=== PATIENT | male | born 1960 | race Caucasian/White ===

== ENCOUNTER 2023-12-28 11:01 | Emergency (ER) | payer MEDICARE, SELFPAY ==
[2023-12-28] VITALS (8 sets, daily range): BP systolic 118–196; BP diastolic 74–104; PULSE 86–107; RESP 17–21; TEMP 37.1; O2SAT 93–98; BMI 26.4
--- NOTE | 2023-12-28 11:02 | CTR_ITS ---
PROCEDURE INFORMATION: Exam: CT Head Without Contrast Exam date and time: 12/28/2023 10:58 AM Age: 63 years old Clinical indication: Stroke-like symptoms; Altered mental status/memory loss; Additional info: Symptoms of acute stroke TECHNIQUE: Imaging protocol: Computed tomography of the head without contrast. Radiation optimization: All CT scans at this facility use at least one of these dose optimization techniques: automated exposure control; mA and/or kV adjustment per patient size (includes targeted exams where dose is matched to clinical indication); or iterative reconstruction. Other technique: STROKE PROTOCOL was implemented. COMPARISON: No relevant prior studies available. RADIATION DOSE METRICS: Total DLP (mGy-cm): 1073.54 FINDINGS: Brain: Intracranial hemorrhage is identified involving the right thalamus measuring 24 x 31 mm with blood extending into the right lateral ventricle. There is mild buckling of septum pellucidum 2 mm to the left. There is blood within the 3rd ventricle but not the 4th ventricle. There is minimal blood in the left lateral ventricle. Cerebral ventricles: See Brain finding. Paranasal sinuses: Visualized sinuses are unremarkable. No fluid levels. Mastoid air cells: Visualized mastoid air cells are well aerated. Bones: Unremarkable. No acute fracture. Soft tissues: Unremarkable. CT/CT head thrombolytic 12420 IMPRESSION: Right thalamic bleed with blood extending into ventricular system with trace left midline shift. Most concerning for a hypertensive infarct. ASSESSMENT: ASPECTS ([place] Stroke Program Early CT Score) does not apply.
--- NOTE | 2023-12-28 11:12 | PC.NURSE ---
XUAN called to discuss the CT Head for this patient with Dr. Rodrigues. Dr. Rodrigues verbalized he was too busy with the patient to take the phone call but verbalized he had seen the CT and had no further questions for the radiologist. I verbalized this information to xuan on the phone.
[2023-12-28 11:19] LABS: Basophils % 0.6 %; Eosinophils % 0.5 %; Hematocrit 45.5 % (37-53); Lymphocytes # 0.7 10^3/uL (0.8-4.8); Lymphocytes % 11.4 %; Mean Corpuscular HGB Conc 33.4 g/dL (30-55); Mean Corpuscular Hemoglobin 32.5 pg (27-33); Mean Corpuscular Volume 97.4 fl (82-101); Mean Platelet Volume 9.9 fL (7.4-10.4); Monocytes # 0.8 10^3/uL (0.2-0.9); Monocytes % 12.2 %; Neutrophils # 4.69 10^3/uL (1.8-7.7); Neutrophils % 75.1 %; Nucleated Red Blood Cells % 0 %; Platelet Count 142 10^3/cmm (157-399); Red Blood Count 4.67 10^6/uL (3.85-5.65); Red Cell Distribution Width 14.9 % (12.1-15.1); White Blood Count 6.24 10^3/uL (3.29-11.43)
[2023-12-28] MEDS: nicardipine 20 MG/200 ML PREMIX 50 MG IV (11:22)
--- NOTE | 2023-12-28 11:27 | PC.NURSE ---
Pt went straight to CT at 1100. Pt is smoker. Denies blood thinners.
[2023-12-28 11:28] LABS: INR 1.17 (0.8-1.2)
--- NOTE | 2023-12-28 11:28 | ED_ITS ---
HPI - Neuro Symptoms/Deficit 2 General: Chief Complaint: Neuro Symptoms/Deficit Stated Complaint: stroke like symptoms Time Seen by Provider: 12/28/23 11:02 Source: patient and EMS Mode of arrival: EMS History of Present Illness: 63-year-old male who states that he is l lidia on the couch this morning at 7:00 he states he had fell off the couch he states he did not hit his head but he noticed after he fell that he was having left-sided weakness states he was unable to get up was unable to stand on his left leg or use his left arm states he had some slurred speech as well Associated symptoms: Deny chest pain, headache(s), nausea or vomiting Related Data Allergies Allergy/AdvReac Type Severity Reaction Status Date / Time No Known Allergies Allergy Verified 12/28/23 11:26 Review of Systems 2 Const: Denies: fever(s), chills, body aches or change in appetite Eyes: Denies: blurry vision or eye discomfort ENMT: Denies: throat pain or dental pain Card: Denies: chest pain Resp: Denies: dyspnea GI: Denies: abdominal pain, nausea, vomiting or diarrhea Musc: Denies: neck pain or back pain Skin/Breast: Denies: rash Neuro: Reports: weakness in extremities, difficulty walking and Slurred speech present; Denies: headache(s) NIH stroke score 2 NIHSS: Level Of Consciousness - 1a: 0 Level Of Consciousness Questions - 1b: Both Correct Level Of Consciousness Commands - 1c: Both Correct Best Gaze - 2: Normal Visual Nicolas - 3: No Visual Loss Facial Palsy - 4: Minor Paralysis Motor Arm Right - 5: No Drift Motor Arm Left - 5: Drift Motor Leg Right - 6: No Drift Motor Leg Left - 6: Drift Limb Ataxia - 7: Absent Sensory - 8: Normal Best Language - 9: No Aphasia Dysarthia - 10: M ild/Moderate Dysarthia Extinction And Inattention - 11: 0 Score: Total Score: 4 Physical Exam 2 Const: COMMON NORMALS: patient oriented x3 GENERAL APPEARANCE: ill appearing HENMT: COMMON NORMALS: normocephalic and atraumatic HEAD & SCALP: n ormocephalic and atraumatic Eye: COMMON NORMALS: Equal, round and reactive pupils present and EOMs intact bilaterally PUPIL: Yes Equal, round and reactive pupils present Neck/C-Spine: COMMON NORMALS: full ROM and supple Chest: COMMONS NORMALS: normal inspection of the chest Resp: COMMON NORMALS: normal respiratory effort, No retractions, No use of accessory muscles and clear to auscultation bilaterally AUSCULTATION: clear to auscultation bilaterally Cardio: COMMON NORMALS: regular rhythm and No murmurs present (Cardio) R ATE: tachycardic RHYTHM: regular rhythm GI: COMMON NORMALS: Normal to inspection, nondistended, normoactive bowel sounds present, Soft to palpation, non-tender and no masses PALPATION: Yes Soft to palpation Extremity: COMMON NORMALS: normal to inspection Neuro: COMMON NORMALS: patient oriented x3 OTHER: Slurred speech along with left-sided weakness Psych: COMMON NORMALS: mental status grossly normal, Normal thought process present and cooperative THOUGHT PROCESS: Normal thought process present Skin: COMMON NORMALS: no rashes or lesions noted and no wounds GENERAL SKIN EXAM: no rashes or lesions noted Course 2 Vital Signs: Vital signs: Vital Signs Temperature 98.8 F 12/28/23 11:17 Pulse Rate 102 H 12/28/23 11:17 Respiratory Rate 18 12/28/23 11:17 Blood Pressure 196/104 12/28/23 11:17 Pulse Oximetry 96 12/28/23 11:17 Oxygen Delivery Me thod Room Air 12/28/23 11:17 MDM - Neuro Symptoms/Deficit Medical Decision Making Patient presents here with intraparenchymal hemorrhage likely due to hypertension he has no signs of head trauma here do have him on a Cardene drip I spoke to [facility] neuro will transfer there for higher level of care Medical Records I reviewed the patient's medical records. Lab Data I reviewed the patient's lab results. 12/28/23 11:10 12/28/23 11:[address] 12/28/23 11:02 IMPRESSION: Right thalamic bleed with blood extending into ventricular system with trace left midline shift. Most concerning for a hypertensive infarct. ASSESSMENT: ASPECTS ([place] Stroke Program Early CT Score) does not apply. ADDENDUM: 12/28/23 ELLA CRUZ received the report at 12/28/2023 11:12 AM DEMAND GENERATION MANAGER and had no questions per the radiology technical support agent. Laboratory Results WBC 6.24 10^3/uL (3.29-11.43) 12/28/23 11:10 RBC 4.67 10^6/uL (3.85-5.65) 12/28/23 11:10 Hgb 15.20 g/dL (11.27-16.99) 12/28/23 11:10 Hct 45.5 % (37-53) 12/28/23 11:10 MCV 97.4 fl (82-101) 12/28/23 11:10 MCH 32.5 pg (27-33) 12/28/23 11:10 MCHC 33.4 g/dL (30-55) 12/28/23 11:10 RDW 14.9 % (12.1-15.1) 12/28/23 11:10 Plt Count 142 10^3/cmm (157-399) L 12/28/23 11:10 MPV 9.9 fL (7.4-10.4) 12/28/23 11:10 Neut % (Auto) 75.1 % 12/28/23 11:10 Lymph % (Auto) 11.4 % 12/28/23 11:10 [place] % (Auto) 12.2 % 12/28/23 11:10 Eos % (Auto) 0.5 % 12/28/23 11:10 Baso % (Auto) 0.6 % 12/28/23 11:10 Neut # (Auto) 4.69 10^3/uL (1.8-7.7) 12/28/23 11:10 Lymph # (Auto) 0.7 10^3/uL (0.8-4.8) L 12/28/23 11:10 [place] # (Auto) 0.8 10^3/uL (0.2-0.9) 12/28/23 11:10 Eos # (Auto) 0.0 10^3/uL (0.0-0.8) 12/28/23 11:10 Baso # (Auto) 0.0 10^3/uL (0.0-0.1) 12/28/23 11:10 Nucleated RBC % (auto) 0 % 12/28/23 11:10 Nucleated RBCs # 0.0 /100WBC 12/28/23 11:10 PT 15.30 SECONDS (12.1-14.9) H 12/28/23 11:10 INR 1.17 (0.8-1.2) 12/28/23 11:10 APTT 40.0 SECONDS (23.9-36.7) H 12/28/23 11:10 Sodium 136 mmol/L (136-145) 12/28/23 11:10 Potassium 4.2 mmol/L (3.5-5.1) 12/28/23 11:10 Chloride 102 mmol/L (98-107) 12/28/23 11:10 Carbon Dioxide 23 mmol/L (22-29) 12/28/23 11:10 Anion Gap 15.2 (5-19) 12/28/23 11:10 BUN 7 mg/dL (8-23) L 12/28/23 11:10 Creatinine 0.5 mg/dL (0.7-1.2) L 12/28/23 11:10 GFR Calculation 169.0 mL/min (90-130) H 12/28/23 11:10 Glucose 136 mg/dL (65-115) H 12/28/23 11:10 Calculated Osmolality 282 mOsm/kg (285-295) L 12/28/23 11:10 Calcium 9.3 mg/dL (8.5-10.5) 12/28/23 11:10 Total Bilirubin 1.7 mg/dL (0.15-1.2) H 12/28/23 11:10 AST 72 U/L (0-40) H 12/28/23 11:10 ALT 27 U/L (0-41) 12/28/23 11:10 Alkaline Phosphatase 123 U/L (40-130) 12/28/23 11:10 Total Protein 8.5 g/dL (6.6-8.7) 12/28/23 11:10 Albumin 4.0 g/dL (3.5-5.2) 12/28/23 11:10 Globulin 4.5 g/dL (1.3-4.6) 12/28/23 11:10 All radiology interpretation(s) finalized by discharge Critical Care Time 2 Critical Care Time: Critical Care Time: Yes Total Critical Care Time: 50 Attestation: The high probability of a clinically significant, sudden or life threatening deterioration of the patient's neuro system(s) required my full and direct attention, intervention and personal management. The critical care time is as shown. This time is in addition to time spent performing any reported procedures but includes the following: [x] Data and vital sign review and interpretation [x] Patient assessment, examination and intervention [x] Documentation [x] Medication orders and management Discharge Plan Discharge Patient Disposition: Xfer Short-Term Hosp Clinical Impression: Acute intracerebral hemorrhage Condition: Stable Referrals: Tito Teran MD [Primary Care Provider] - Coding Level of Care Code ED Dairy Husbandman for Denisa Solis
[2023-12-28] MEDS: labetalol 5 mg/mL SDV 20mL 10 MG IVP (11:31)
[2023-12-28 11:33] LABS: Alanine Aminotransferase 27 U/L (0-41); Alkaline Phosphatase 123 U/L (40-130); Anion Gap 15.2 (5-19); Aspartate Amino Transferase 72 U/L (0-40); Blood Urea Nitrogen 7 mg/dL (8-23); Calcium 9.3 mg/dL (8.5-10.5); Carbon Dioxide 23 mmol/L (22-29); Chloride 102 mmol/L (98-107); Creatinine Clr Calc Pharmacy 174.7945; Globulin 4.5 g/dL (1.3-4.6); Glucose 136 mg/dL (65-115); Osmolality Calculated 282 mOsm/kg (285-295); Potassium 4.2 mmol/L (3.5-5.1); Sodium 136 mmol/L (136-145); Total Bilirubin 1.7 mg/dL (0.15-1.2); Total Protein 8.5 g/dL (6.6-8.7)
--- NOTE | 2023-12-28 11:55 | ECG_ITS ---
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 Measurements Intervals [place] Rate: 86 P: 65 DC: 149 QRS: 40 QRSD: 92 T: 46 QT: 419 QTc: 504 Interpretive Statements SINUS RHYTHM PROLONGED QT INTERVAL No previous ECG available for comparison Electronically Signed On 12-29-2023 18:47:52 CDT by Sunday Chan M.D. [email or web address]
[2023-12-28 12:05] LABS: Glucose Point of Care 128 mg/dL (70-110)
[2023-12-28 12:35] LABS: Bilirubin Urine Negative (Negative); Blood Urine Negative (Negative); Glucose Urine UA Negative (Normal); Ketones Urine Negative (Negative); Leukocyte Esterase Urine Negative (Negative); Nitrate Urine Negative (Negative); Protein Urine 1+ (Negative); Specific Gravity, Urine 1.011 (1.005-1.030); Urine Appearance Clear (CLEAR); Urine Color Yellow (Yellow)
[2023-12-28 12:38] LABS: Add Urine Microscopic? YES; Bacteria Urine None Seen /hpf; Hyaline Casts Urine 0-4 /lpf; RBC Urine 0-2 /hpf (0-2); Squamous Epithelial Cell Urine 0-5 /hpf (0-5); WBC Urine 0-5 /hpf (0-5)
[2023-12-28 12:41] LABS: Amphetamines Screen Urine Negative (Negative); Barbiturates Screen Urine Negative (Negative); Benzodiazepines Screen Urine Negative (Negative); Cocaine Screen Urine Negative (Negative); Opiate Screen Urine Negative (Negative); PCP Screen Urine Negative (Negative); THC Screen Urine Negative (Negative)
== END 2023-12-28 13:58 | disposition short-term general hospital (02) ==
PROVIDERS: Emergency Provider Emergency Medicine; PCP Internal Medicine
DX: I61.9 Nontraumatic intracerebral hemorrhage, unspecified (principal); R47.81 Slurred speech; G81.94 Hemiplegia, unspecified affecting left nondominant side; W08.XXXA Fall from other furniture, initial encounter; I10 Essential (primary) hypertension
CPT/HCPCS: 36415; 36416; 70450; 80053; 80306; 81001; 82962; 85025; 85610; 85730; 93005; 96374; 96375; 99285; J3490